=== PATIENT | female | born 1990 | race Caucasian/White ===

== ENCOUNTER 2018-10-29 08:15 | Emergency (ER) | payer BC, OTHER ==
[~2018-10-29] VITALS: Ht 167.6 cm; Wt 60.3 kg
[~2018-10-29 08:15] MED LIST: CEPH500C PO; CYCL10TA9 PO; DOXY50CA2 PO; HYDR-1229 PO; ONDA8TAB9 PO; PHEN15CA PO
--- NOTE | 2018-10-29 08:34 | ED Fall/Injury ---
General Chief Complaint: Lower Extremity Stated Complaint: FALL - R ANKLE PAIN Nursing Triage Note: PT TO ED 6 W/ C/O RT ANKLE PAIN ONSET THIS AM AFTER ROLLING HER ANKLE WHILE WALKING. SWELLING NOTED TO LATERAL ASPECT OF ANKLE. PT ABLE TO BEAR WEIGHT AT THIS TIME. NO OTHER C/O VOICED Source: patient Exam Limitations: no limitations History of Present Illness Date Seen by Provider: Oct 29, 2018 Time Seen by Provider: 20:24 Initial Comments This 28-year-old young lady presents to the emergency room with a right ankle injury. She tripped and fell last night resulting in inversion of the right ankle. She now has pain and swelling over the lateral malleolus. She denies any other injury. Allergies and Home Medications Allergies Uncoded Allergies: ORAL CONTROL (Allergy, Mild, 08/05/13) Home Medications Phentermine HCl 15 Mg Capsule, 15 MG PO DAILY, (Reported) Patient Home Medication List Home Medication List Reviewed: Yes Review of Systems Review of Systems Constitutional: no symptoms reported Eyes: No Symptoms Reported Ears, Nose, Mouth, Throat: no symptoms reported Respiratory: no symptoms reported Cardiovascular: no symptoms reported Gastrointestinal: no symptoms reported Genitourinary: no symptoms reported Musculoskeletal: see HPI Skin: no symptoms reported Psychiatric/Neurological: No Symptoms Reported Past Gxoagcm-Cqozde-Toycev Hx Patient Social History Alcohol Use: Denies Use Recreational Drug Use: No Smoking Status: Never a Smoker Recent Foreign Travel: No Contact w/Someone Who Travel: No Recent Infectious Disease Expo: No Recent Hopitalizations: No Physical Abuse: No Sexual Abuse: No Mistreated: No Fear: No Past Medical History Surgeries: Yes (BREAST AUGMENTATION) Respiratory: No Cardiac: No Neurological: No : No Reproductive Disorders: No Gastrointestinal: No Musculoskeletal: No Endocrine: No HEENT: No Cancer: No Psychosocial: No Integumentary: No Blood Disorders: No Physical Exam Vital Signs Vital Signs - First Documented 10/29/18 08:16 Temp 97.1 Pulse 92 Resp 18 B/P (MAP) 115/81 (92) Pulse Ox 99 O2 Delivery Room Air Capillary Refill : Less Than 3 Seconds Height, Weight, BMI Height: 5'6.00" Weight: 133lbs. 0.0oz. 60.613459eq; BMI Method:Stated General Appearance: WD/WN, no apparent distress HEENT: PERRL/EOMI, normal ENT inspection Neck: normal inspection Cardiovascular: regular rate, rhythm, no edema, no murmur Respiratory: lungs clear, normal breath sounds, no respiratory distress Extremities: other (there is swelling and tenderness over the right lateral malleolus. Distal sensation, capillary refill, and movement intact. Pedal pulse palpable. No significant laxity noted. Range of motion intact but there is pain with dorsiflexion. 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 See report below: NAME: SHELIA MONSON [facility] REC#: [id number] PT STATUS: REG ER : 1990 PHYSICIAN: LISANDRA PRESLEY MD ADMIT DATE: 10/29/18/ER Signed Date of Exam: 10/29/18 ANKLE, RIGHT, 3 VIEWS INDICATION: Right ankle pain AP, oblique, and lateral views of the right ankle are obtained. There is soft tissue swelling posteriorly. There is no acute fracture or acute bony abnormality seen. IMPRESSION: Soft tissue swelling. No acute fracture of right ankle. Dictated by: Dictated on workstation # [id number] Dict: 10/29/18 0850 Trans: 10/29/18905 Interpreted by: RACHEL NINO MD Electronically signed by: RACHEL NINO MD 10/29/18905 Departure Impression Primary Impression: Right ankle sprain Qualified Codes: S93.401A - Sprain of unspecified ligament of right ankle, initial encounter Disposition: 01 HOME, SELF-CARE Condition: Stable Departure-Patient Inst. Decision time for Depature: 09:25 Referrals: JANNET PIERCE MD (PCP/Family) Primary Care Physician Patient Instructions: Ankle Sprain Add. Discharge Instructions: For pain you may take ibuprofen up to 600 mg every 6 hours as needed and/or Tylenol up to 1000 mg every 6 hours as needed. Rest, elevation, and icing in 20 minute intervals may also improve pain and swelling. Gradually increase activity as pain allows. It is gillis to wear a brace or tape ankle when active for the next 4-6 weeks to prevent reinjury. Return to care if you have any worsening symptoms or are not improving as expected. All discharge instructions reviewed with patient and/or family. Voiced understanding. LISANDRA PRESLEY MD Oct 29, 2018 08:34
--- NOTE | 2018-10-29 08:54 | Diagnostic Imaging Report ---
INDICATION: Right ankle pain AP, oblique, and lateral views of the right ankle are obtained. There is soft tissue swelling posteriorly. There is no acute fracture or acute bony abnormality seen. IMPRESSION: Soft tissue swelling. No acute fracture of right ankle. Dictated by: Dictated on workstation # [id number]
[2018-10-29 09:29] VITALS: BP 117/78
== END 2018-10-29 09:29 | disposition home or self-care (01) ==
LOC: EDUNIT# 08:15 → ER 08:16
DX: S93.401A Sprain of unspecified ligament of right ankle, initial encounter (principal); Z88.8 Allergy status to other drugs, medicaments and biological substances; X50.1XXA Overexertion from prolonged static or awkward postures, initial encounter; Y93.01 Activity, walking, marching and hiking
CPT/HCPCS: 73610